=== PATIENT | male | born 1965 | race Two or more races ===

== ENCOUNTER 2025-08-15 06:20 | Day surgery (SDC) | payer BC, SELFPAY ==
[2025-08-13 14:31] VITALS: BMI 30.1
--- NOTE | 2025-08-14 07:00 | EKG_ITS ---
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
[2025-08-14 09:04] LABS: Basophils # (Auto) 0.0 Thou/mm3 (0.0-0.2); Basophils % (Auto) 1 % (0-2.5); Eosinophils # (Auto) 0.1 Thou/mm3 (0.0-0.5); Eosinophils % (Auto) 1 % (0-10); Hematocrit 44.2 % (41.0-53.0); Hemoglobin 14.9 g/dL (13.5-16.0); Immature Granulocytes Auto 0.02 Thou/mm3 (0.00-0.00); Lymphocytes # (Auto) 2.6 Thou/mm3 (1.0-4.8); Lymphocytes % (Auto) 39 % (10-50); Mean Corpuscular HGB Conc 33.7 g/dl (31.0-37.0); Mean Corpuscular Hemoglobin 30.0 pg (25.0-35.0); Mean Corpuscular Volume 89 fL (80-100); Monocytes # (Auto) 0.4 Thou/mm3 (0.0-0.8); Monocytes % (Auto) 6 % (0-12); Neutrophils # (Auto) 3.5 Thou/mm3 (1.8-7.7); Neutrophils % (Auto) 53 % (37-80); Nucleated Red Blood Cell # 0.00 Thou/mm3 (0.00-0.00); Nucleated Red Blood Cell % 0 /100 WBC (0); Platelet Count 231 Thou/mm3 (140-440); RDW Standard Deviation 41.7 fL (35.1-43.9); Red Blood Count 4.97 Miln/mm3 (4.50-5.90); White Blood Count 6.6 Thou/mm3 (3.8-10.6)
[2025-08-14 09:20] LABS: INR 1.0 (0.9-1.3); Partial Thromboplastin Time 27.9 Seconds (22.0-36.0); Prothrombin Time 10.9 Seconds (9.0-12.2)
[2025-08-14 09:21] LABS: Anion Gap 8 (7-16); BUN/Creatinine Ratio 14 Ratio (12-20); Blood Urea Nitrogen 11 mg/dL (9-23); Calcium 10.1 mg/dL (8.3-10.6); Carbon Dioxide 27.1 mMol/L (20.0-31.0); Chloride 104 mMol/L (98-107); Creatinine (Component) 0.8 mg/dL (0.6-1.3); Estimated Creatinine Clearance 107.6 mL/min (>60); Glucose 125 mg/dL (74-106); Osmolality,Calculated 277 (275-295); Potassium 4.4 mMol/L (3.4-5.1); Sodium 139 mMol/L (136-145); eGFR > 60 See Note
[2025-08-15] VITALS (11 sets, daily range): BP systolic 105–133; BP diastolic 67–81; PULSE 73–86; RESP 16–20; TEMP 36.7–36.8; O2SAT 95–99
--- NOTE | 2025-08-15 13:02 | ESOP_ITS ---
RE: MOY NEWSOME : 1965 DATE OF OPERATION: 08/15/2025 PROCEDURES PERFORMED: 1. Diagnostic left heart cardiac catheterization, selective coronary angiogram, [place] [address]. 2. Conscious sedation, 30 minute duration. 3. Ultrasound guided access, right radial artery. DIAGNOSES: Abnormal stress test, shortness of breath and abnormal nuclear scan. HISTORY AND INDICATIONS: The patient is a 60-year-old male with a history of hypertension and long-standing diabetes for more than 20 years. He has had episodes shortness of breath and angina equivalent symptoms. Cardiac stress test and nuclear scan was abnormal, showing reversible perfusion defect in the inferior wall. Hence, coronary angiogram was recommended to assess the patient is a candidate for coronary revascularization and intervention. DESCRIPTION OF PROCEDURE: The patient was brought to the cardiac catheterization laboratory. He was given 2 mg of Versed and 50 mcg of fentanyl for sedation. Right radial approach was taken. Right radial artery was cannulated with a micropuncture technique. A 6-[place]zech Glidesheath was introduced. Selective right and left coronary angiogram was performed with a TIG-4 diagnostic catheter, and left ventricular angiogram and left heart catheterization were performed with a 5-[place]zech TIG-4 diagnostic catheter. The patient tolerated the procedure well with no complications. Cardiac catheterization showed following findings. HEMODYNAMICS: Left ventricular pressure was 100/10, and aortic pressure was 100/70. There was no gradient across the aortic valve. EDP is 8 mmHg. Left ventricular angiogram showed normal left ventricular wall motion. Ejection fraction is 70%. Cardiac fluoroscopy showed extensive and heavy calcification of the entire right coronary artery proximal, mid, and distal segment and PDA, and also a heavy calcification of the left main, LAD, and circumflex arteries throughout the vessel. Coronary angiogram showed following findings: Right coronary artery was large and dominant and showed evidence of a heavy calcification of the entire RCA. The distal right coronary artery showed initially 80% stenosis followed by 90% stenosis, dividing into a very small PL branch and a fairly decent posterior descending artery, which also showed extensive atherosclerosis. There is a 90% stenosis of the posterior descending artery as well. Left coronary system: The left main coronary artery showed calcification but no severe stenosis. The left anterior descending artery showed heavy calcification and moderate disease involving the distal left anterior descending artery, followed by severe stenosis in the distal-most LAD, not significant to consider revascularization. The diagonal branch of the LAD showed moderate diffuse disease. The circumflex artery showed again heavy calcification. The distal branches of the OM branch and the distal circumflex showed evidence of diffuse distal disease with heavy calcification. SUMMARY OF FINDINGS: 1. Heavy coronary calcification of all 3 major coronary arteries. 2. Severe stenosis of the distal right coronary artery and posterior descending artery with multiple discrete lesions with heavy calcification, possibly endo-calcification versus adventitial calcification. 3. Heavy calcification of LAD and circumflex arteries with diffuse distal vessel disease, and the distal-most vessel showing severe stenosis not suitable for revascularization. 4. Excellent LV function. RECOMMENDATIONS: Patient is recommended to continue maximal medical management. If he has significant angina symptoms or continues to have issues, the patient would be recommended to have complex PCI of the distal right coronary artery and posterior descending branch, which may require rotational atherectomy or other procedures if there is heavy calcification, as it may not be suitable for regular angioplasty. DT: 12:34:08 TT: 13:00:00 Ref: [id number] - TID: [id number]
== END 2025-08-15 12:03 | disposition home or self-care (01) ==
PROVIDERS: PCP Family Medicine; Referring Provider Internal Medicine Cardiovascular Disease; Visit Provider Internal Medicine Cardiovascular Disease
PROC: (CPT 93458; principal; 2025-08-15 07:30)
DX: I25.118 Atherosclerotic heart disease of native coronary artery with other forms of angina pectoris (principal); E78.2 Mixed hyperlipidemia; I10 Essential (primary) hypertension; E11.9 Type 2 diabetes mellitus without complications; R94.30 Abnormal result of cardiovascular function study, unspecified; Z01.810 Encounter for preprocedural cardiovascular examination; Z79.899 Other long term (current) drug therapy; Z79.82 Long term (current) use of aspirin
CPT/HCPCS: 93458; 36415; 80048; 85025; 85610; 85730; 93005; 99152; A4649; C1887; C1894; J0168; J0461; J1643; J2250; J2312; J2371; J3010; J3490; Q9967; J2305